=== PATIENT | male | born 1965 ===

== ENCOUNTER → 2024-09-21 | Outpatient (CLI) | payer SELFPAY ==
[2024-09-21 21:47] LABS: Cholesterol 194 mg/dL (200); High Density Lipoprotein 64 mg/dL; PSA,Total- Diagnostic 2.58 ng/mL (0.0-4.0); Triglycerides 187 mg/dL; Very Low Density Lipoprotein 37 mg/dL (5-40)
[2024-09-24 16:08] LABS: Lipoprotein A 9.9 nmol/L (<75.0)
[2024-09-25 05:07] LABS: HOMOCYSTEINE 10.8 umol/L (0.0-14.5)
== END | disposition home or self-care (01) ==
LOC: LABSPEC 18:03
PROVIDERS: PCP Nurse Practitioner Family; Visit Provider Nurse Practitioner Family
DX: N41.1 Chronic prostatitis (principal); N39.0 Urinary tract infection, site not specified; R53.82 Chronic fatigue, unspecified; R06.83 Snoring; R06.81 Apnea, not elsewhere classified; R39.82 Chronic bladder pain; R32 Unspecified urinary incontinence; E61.7 Deficiency of multiple nutrient elements; B60.09 Other babesiosis; A69.20 Lyme disease, unspecified
CPT/HCPCS: 80061; 83090; 83695; 84153